=== PATIENT | male | born 1945 | race Caucasian/White ===

== ENCOUNTER 2022-11-16 21:46 | Emergency (ER) | payer MEDICARE ==
[~2022-11-16] VITALS: Ht 172.7 cm; Wt 81.7 kg
[2022-11-16 22:38] VITALS: BP 171/92
== END 2022-11-16 23:49 | disposition home or self-care (01) ==
LOC: ER 21:46
DX: S61.512A Laceration without foreign body of left wrist, initial encounter (principal); Z23 Encounter for immunization; W22.8XXA Striking against or struck by other objects, initial encounter
CPT/HCPCS: 12002; 90471; 90714; 99282-25